=== PATIENT | male | born 1990 | race Caucasian/White ===

== ENCOUNTER 2019-07-18 15:13 | Emergency (ER) | payer OTHER ==
[~2019-07-18] VITALS: Ht 167.6 cm; Wt 93.2 kg
[~2019-07-18 15:13] MED LIST: ACET215 OT; LEVE250T55 PO; PHEN100C23 PO
[2019-07-18] MEDS ORDERED: TERBINAFINE HCL 1% 30 GM CREAM TP ONE (16:15)
[2019-07-18] MEDS ORDERED: CEPHALEXIN MONOHYDRATE 500 MG CAPSULE PO ONE (16:15)
[2019-07-18] MEDS ORDERED: ACETAMINOPHEN 500 MG TABLET PO ONE (16:15)
[2019-07-18 18:02] LABS: APPEARANCE,URINE CLEAR (CLEAR); BILIRUBIN,URINE NEGATIVE (NEGATIVE); GLUCOSE, URINE (UA) NEGATIVE (NEGATIVE); KETONES,URINE NEGATIVE (NEGATIVE); LEUKOCYTE ESTERASE ,URINE NEGATIVE (NEGATIVE); NITRATE,URINE NEGATIVE (NEGATIVE); OCCULT BLOOD,URINE NEGATIVE (NEGATIVE); PH,URINE 5.5 (5.0-8.0); PROTEIN,URINE NEGATIVE (NEGATIVE); UROBILINOGEN,URINE 0.2 mg/dL (<=1.0)
[2019-07-18 18:19] LABS: BACTERIA,URINE Rare /HPF (None Seen); RBC,URINE 0-2 /HPF (0-2); SQUAMOUS EPITHELIAL CELL,UR Rare /LPF (None Seen); WBC,URINE 0-2 /HPF (0-5)
[2019-07-18 18:54] VITALS: BP 127/68
== END 2019-07-18 19:05 | disposition home or self-care (01) ==
LOC: EMS 15:18
DX: B35.6 Tinea cruris (principal); N45.1 Epididymitis
CPT/HCPCS: 76870

== ENCOUNTER 2023-10-31 21:30 | Emergency (ER) | payer OTHER ==
[~2023-10-31] VITALS: Ht 177.8 cm; Wt 92.5 kg
[~2023-10-31 21:30] MED LIST changes: +CIPR250T6 PO; +LEVE250T4 PO; -LEVE250T55 PO
[2023-10-31 22:02] VITALS: BP 112/75; PULSE 97; RESP 17; TEMP 98
[2023-10-31 22:05] LABS: COVID AG,FIA SOURCE NASAL SWAB
[2023-10-31 22:36] LABS: INFLUENZA TYPE B NEGATIVE FOR TYPE B (NEGATIVE)
[2023-10-31 22:37] LABS: SARS-COV2 (COVID) ANTIGEN,FIA Negative (Negative)
[2023-10-31 22:41] LABS: INFLUENZA TYPE A POSITIVE FOR TYPE A (NEGATIVE)
[2023-10-31] MEDS ORDERED: ACETAMINOPHEN 500 MG TABLET PO ONE (23:15)
[2023-11-01] MEDS ORDERED: BENZ-227 PO (00:11)
[2023-11-01] MEDS ORDERED: ACET-3385 PO (00:11)
[2023-11-01] MEDS ORDERED: BENZONATATE 100 MG CAPSULE PO ONE (00:15)
== END 2023-11-01 00:27 | disposition home or self-care (01) ==
LOC: EMS 21:52
DX: J10.1 Influenza due to other identified influenza virus with other respiratory manifestations (principal); Z20.822 Contact with and (suspected) exposure to COVID-19
CPT/HCPCS: 71045; 87804; 99284